=== PATIENT | male | born 1975 | race Hispanic/Latino ===

== ENCOUNTER 2024-06-03 12:17 | Emergency (ER) | payer OTHER ==
[~2024-06-03] VITALS: Ht 172.7 cm; Wt 81.6 kg
[2024-06-03 12:52] LABS: BASOPHILS # (AUTO) 0.02 K/uL (0.00-0.20); BASOPHILS % (AUTO) 0.3 % (0.0-5.0); EOSINOPHILS # (AUTO) 0.03 K/uL (0.00-0.70); EOSINOPHILS % (AUTO) 0.4 % (0.0-8.0); HEMATOCRIT 45.7 % (42-54); IMMATURE GRANULOCYTE ABSOLUTE 0.02 K/uL (0-1); LYMPHOCYTES # (AUTO) 0.8 K/uL (1.0-4.8); LYMPHOCYTES % (AUTO) 10.6 % (21.0-51.0); MEAN CORPUSCULAR HEMOGLOBIN 27.2 pg (27.0-33.0); MEAN CORPUSCULAR HGB CONC 32.6 g/dL (32.0-36.0); MEAN CORPUSCULAR VOLUME 83.4 fL (79-99); MONOCYTES # (AUTO) 0.6 K/uL (0.1-1.0); MONOCYTES % (AUTO) 8.6 % (3.0-13.0); NEUTROPHILS # (AUTO) 5.8 K/uL (1.8-7.7); NEUTROPHILS % (AUTO) 79.8 % (40.0-77.0); PLATELET COUNT (AUTO) 257 K/uL (130-400); RED BLOOD CELL COUNT(AUTO) 5.48 MIL/uL (4.50-6.20); RED CELL DISTRIBUTION WIDTH 14.1 % (11.0-15.5); WHITE BLOOD COUNT (AUTO) 7.2 K/uL (4.8-10.8)
[2024-06-03 13:05] LABS: CREATININE 1.2 mg/dL (0.5-1.3); POTASSIUM 3.4 mmol/L (3.5-5.1)
[2024-06-03 13:28] LABS: B-TYPE NATRIURETIC PEPTIDE 13 pg/mL (0-100)
[2024-06-03 13:30] LABS: COVID19 (SARS ANTIGEN RAPID) PRESUMPTIVE NEGATIVE (NEGATIVE); INFLUENZA TYPE A Negative For Type A (NEGATIVE); INFLUENZA TYPE B Negative For Type B (NEGATIVE)
[2024-06-03] MEDS: Solu-medROL 125MG VIAL IVP ONE (13:30)
[2024-06-03] MEDS: IpraTROPium/alBUTERol SULFATE 3 ML SOLUTION IH ONE (13:51)
[2024-06-03 13:55] VITALS: PULSE 89
[2024-06-03] MEDS: 0.9%NACL 1000ML 1,000 ML IV ONE (14:26)
[2024-06-03] MEDS ORDERED: ALBUHFA IH (14:33)
[2024-06-03] MEDS ORDERED: AZIT250T9 PO (14:33)
[2024-06-03 14:52] VITALS: BP 137/80; PULSE 84; RESP 16; TEMP 97.8; O2SAT 99
== END 2024-06-03 15:36 | disposition home or self-care (01) ==
LOC: EDBD 12:17 → EDH 12:17
DX: J06.9 Acute upper respiratory infection, unspecified (principal); B97.89 Other viral agents as the cause of diseases classified elsewhere; Z20.822 Contact with and (suspected) exposure to COVID-19
CPT/HCPCS: 99285; 96374; 71045; 87426; 84484; 80048; 83880; 85025; 87804 ×2; 36415; 93005; 94640; J7030; J2919